=== PATIENT | female | born 1950 | race Caucasian/White ===

== ENCOUNTER 2022-04-09 10:13 | Emergency (ER) | payer MEDICARE, OTHER ==
[2022-04-09 11:12] LABS: #Basophils 0.1 thou/uL (0.0-0.2); #Eosinphils 0.2 thou/uL (0.0-0.7); #Monocytes 0.5 thou/uL (0.11-0.59); #Neutrophils 5.8 thou/uL (1.40-6.50); %Basophils 1.8 % (0.0-1.0); %Eosinophils 2.8 % (0.0-10.0); %Lymphocytes 12.6 % (21.0-51.0); %Monocytes 6.8 % (0.0-10.0); %Neutrophils 75.9 % (42.0-75.0); Hemoglobin 14.8 g/dL (12.0-16.0); Mean Corpuscular HGB CONC 33.4 g/dL (32.0-36.0); Mean Corpuscular Hemoglobin 29.3 pg (27.0-31.0); Mean Corpuscular Volume 87.7 fL (78.0-98.0); Mean Platelet Volume 9.9 fL (7.4-10.4); Platelet Count 210 thou/uL (130-400); RBC Distribution Width 13.1 % (11.5-14.5); Red Blood Cell (RBC) Count 5.06 mill/uL (4.20-5.40); White Blood Cell (WBC) Count 7.6 thou/uL (4.8-10.8)
[2022-04-09] MEDS ORDERED: methylPREDNISolone Sod Succ/PF 125 MG/2 ML VIAL ONE (11:13)
[2022-04-09 11:25] LABS: ALT (SGPT) 15 U/L (8-55); AST (SGOT) 16 U/L (5-34); Albumin 4.1 g/dL (3.4-4.8); Alkaline Phosphatase 69 U/L (40-110); Anion Gap 16 mmol/L (10-20); BUN (Urea Nitrogen) 8 mg/dL (9.8-20.1); Bilirubin, Total 0.7 mg/dL (0.2-1.2); Calc. Creatinine Clearance 0 mL/min (70-130); Calcium 9.3 mg/dL (7.8-10.44); Carbon Dioxide 27 mmol/L (23-31); Chloride 102 mmol/L (98-107); Globulin 3.3 g/dL (2.4-3.5); Glucose 117 mg/dL (83-110); Potassium 3.9 mmol/L (3.5-5.1); Protein, Total 7.4 g/dL (5.8-8.1); Sodium 141 mmol/L (136-145)
[2022-04-09] MEDS ORDERED: Sodium Chloride 0.9% 100 ML ONE (11:41)
[2022-04-09] MEDS ORDERED: cefTRIAXone\\ROCEPHIN 2 GM VIAL ONE (11:41)
[2022-04-09 12:06] LABS: SARS-CoV-2 NAA Rapid Test Not Detected (NotDetected)
[2022-04-09] MEDS ORDERED: Furosemide 40 MG/4 ML VIAL ONE (12:09)
[2022-04-09] MEDS ORDERED: Nitroglycerin 2% Ointment 1 INCH/1 GM Packet ONE (12:09)
[2022-04-09] MEDS ORDERED: Aspirin Chewable 81 MG TAB ONE (12:09)
[2022-04-09] MEDS ORDERED: Azithromycin 500 MG VIAL ONE (12:11)
[2022-04-09] MEDS ORDERED: Nitroglycerin 0.4 MG TAB 1 EACH ONE (12:52)
== END 2022-04-09 18:03 | disposition short-term general hospital (02) ==
LOC: BURERS 10:13
DX: U07.1 COVID-19 (principal); I11.0 Hypertensive heart disease with heart failure; I50.9 Heart failure, unspecified; Z79.82 Long term (current) use of aspirin; Z79.899 Other long term (current) drug therapy
CPT/HCPCS: 36415; 71045; 80053; 83605; 83880; 84484; 85025; 87040; 87804; 93005; 96365; 96366; 96367; 96375; J0456; J0696; J1940; J2930; J3490; J7620; U0002